=== PATIENT | female | born 1995 | race Caucasian/White ===

== ENCOUNTER 2017-03-03 19:49 | Emergency (ER) | payer MEDICAID ==
[~2017-03-03] VITALS: Ht 167.6 cm; Wt 66.0 kg
[2017-03-03 20:48] VITALS: BP 129/88
[2017-03-03] MEDS ORDERED: KETOROLAC 60MG/2ML VIAL IM ONE (21:30)
== END 2017-03-04 | disposition home or self-care (01) ==
LOC: ER 21:38
DX: R51 Headache (principal)
CPT/HCPCS: 70450; 81025; 99284

== ENCOUNTER 2017-08-09 20:35 | Emergency (ER) | payer MEDICAID ==
[~2017-08-09] VITALS: Ht 165.1 cm; Wt 62.0 kg
[2017-08-09 20:58] VITALS: BP 130/96
== END 2017-08-10 04:55 | disposition left against medical advice (07) ==
LOC: ER 08-10 04:51
DX: R10.9 Unspecified abdominal pain (principal); Z53.21 Procedure and treatment not carried out due to patient leaving prior to being seen by health care provider

== ENCOUNTER 2021-03-28 10:42 | Emergency (ER) | payer MEDICAID ==
[~2021-03-28] VITALS: Ht 167.6 cm; Wt 67.0 kg
[2021-03-28 11:06] LABS: CLARITY URINE CLEAR (CLEAR); COLOR URINE YELLOW (YELLOW); KETONES URINE NEGATIVE (NEGATIVE); LEUKOCYTE ESTERASE URINE 2+ (NEGATIVE); NITRITE URINE NEGATIVE (NEGATIVE); OCCULT BLOOD URINE 2+ (NEGATIVE); PH URINE 7.5 (4.5-8.0); PROTEIN URINE NEGATIVE (NEGATIVE); SPECIFIC GRAVITY URINE 1.003 (1.005-1.030); UROBILINOGEN URINE 0.2 E.U./dL (0.2-1.0)
[2021-03-28] MEDS ORDERED: NITR-87 MT (11:39)
[2021-03-28 11:53] VITALS: BP 120/78
== END 2021-03-28 11:48 | disposition home or self-care (01) ==
LOC: ER 10:42
DX: N39.0 Urinary tract infection, site not specified (principal)
CPT/HCPCS: 81003; 81025; 99283

== ENCOUNTER 2024-10-19 10:32 | Emergency (ER) | payer MEDICAID ==
[~2024-10-19] VITALS: Ht 170.2 cm; Wt 68.0 kg
[~2024-10-19 10:32] MED LIST: NITR-87 MT
[2024-10-19 10:37] VITALS: O2SAT 96
[2024-10-19] MEDS ORDERED: IPRATROPIUM/ALBUTEROL 0.5-3(2.5)MG/3ML NEB HHN ONE (11:00)
[2024-10-19] MEDS ORDERED: P20 PO (11:12)
[2024-10-19] MEDS ORDERED: ALBU18HF2 IH (11:12)
[2024-10-19 11:20] LABS: BASOPHILS % 0.6 % (0.0-2.0); EOSINOPHILS % 4.7 % (0.0-5.0); HEMATOCRIT. 42.6 % (36.0-48.0); HEMOGLOBIN. 14.5 g/dL (12.0-16.0); MEAN CORPUSCULAR VOLUME 91.1 fL (81.0-99.0); MEAN PLATELET VOLUME 9.4 fl (7.4-10.4); MONOCYTES % 7.9 % (2.0-8.0); NEUTROPHILS % 75.8 % (40.0-76.0); PLATELET 210 x1000/uL (130-400); RED BLOOD CELL COUNT 4.67 mill/uL (4.2-5.4); WHITE BLOOD COUNT 9.6 x1000/uL (4.5-11.0)
[2024-10-19] MEDS: PREDNISONE 20MG TABLET PO ONE (11:24)
[2024-10-19 11:32] LABS: CHLORIDE 106 mEq/L (98-107); POTASSIUM 3.9 mEq/L (3.5-5.1); SODIUM 139 mEq/L (136-145)
[2024-10-19 11:33] LABS: CALCIUM 9.6 mg/dL (8.7-10.4); CARBON DIOXIDE 25 mEq/L (21-32)
[2024-10-19 11:38] LABS: CREATININE 0.7 mg/dL (0.6-1.0); GLUCOSE 92 mg/dL (70-105); UREA NITROGEN BLOOD 7 mg/dL (9-23)
[2024-10-19 12:06] VITALS: BP 125/88; PULSE 100; RESP 16; TEMP 37.11408; O2SAT 96
[2024-10-19 12:22] LABS: TROPONIN I HIGH SENSITIVITY < 4 ng/L (3.0-34)
== END 2024-10-19 12:07 | disposition home or self-care (01) ==
LOC: ER 10:41
DX: J06.9 Acute upper respiratory infection, unspecified (principal); I49.9 Cardiac arrhythmia, unspecified
CPT/HCPCS: 80048; 85025; 84484; 36415; 71045; 93005; 99285; J7512; Z7610

== ENCOUNTER 2025-01-28 16:21 | Emergency (ER) | payer MEDICAID ==
[~2025-01-28] VITALS: Ht 167.6 cm; Wt 70.3 kg
[~2025-01-28 16:21] MED LIST changes: +ALBU18HF2 IH; +P20 PO
[2025-01-28 16:26] VITALS: BP 116/76; TEMP 36.7; O2SAT 98
[2025-01-28 16:33] VITALS: PULSE 115; RESP 16; O2SAT 99
== END 2025-01-28 18:42 | disposition home or self-care (01) ==
LOC: ER 16:21
DX: H00.015 Hordeolum externum left lower eyelid (principal); Z79.899 Other long term (current) drug therapy; Z98.890 Other specified postprocedural states; Z79.52 Long term (current) use of systemic steroids
CPT/HCPCS: 99281

== ENCOUNTER 2025-02-24 21:25 | Emergency (ER) | payer MEDICAID ==
[~2025-02-24] VITALS: Ht 167.6 cm; Wt 77.0 kg
[2025-02-24 21:26] VITALS: O2SAT 99
[2025-02-24 21:32] VITALS: BP 123/78; PULSE 99; RESP 18; TEMP 36.7; O2SAT 99
[2025-02-24 21:52] LABS: CLARITY URINE CLEAR (CLEAR); COLOR URINE YELLOW (YELLOW); GLUCOSE URINE NEGATIVE (NEGATIVE); KETONES URINE NEGATIVE (NEGATIVE); LEUKOCYTE ESTERASE URINE NEGATIVE (NEGATIVE); NITRITE URINE NEGATIVE (NEGATIVE); OCCULT BLOOD URINE NEGATIVE (NEGATIVE); PH URINE 6.5 (4.5-8.0); PROTEIN URINE NEGATIVE (NEGATIVE); SPECIFIC GRAVITY URINE 1.015 (1.005-1.030); UROBILINOGEN URINE 0.2 E.U./dL (0.2-1.0)
[2025-02-24] MEDS ORDERED: DOXY200T8 MT (23:26)
[2025-02-24] MEDS: DOXYCYCLINE HYCLATE 100MG CAPSULE PO ONE (23:39)
[2025-02-24] MEDS: CEFTRIAXONE SODIUM 500MG VIAL IM ONE (23:39)
[2025-02-24] MEDS: METRONIDAZOLE 500MG TABLET PO ONE (23:39)
[2025-02-25] MEDS ORDERED: DOXY100C74 MT (16:33)
== END 2025-02-25 07:44 | disposition home or self-care (01) ==
LOC: ER 21:25
DX: N89.8 Other specified noninflammatory disorders of vagina (principal); Z87.440 Personal history of urinary (tract) infections; Z79.52 Long term (current) use of systemic steroids; Z79.899 Other long term (current) drug therapy
CPT/HCPCS: 81003; 87491; 87591; 99283